=== PATIENT | female | born 1960 | race Caucasian/White ===

== ENCOUNTER → 2016-09-05 | Outpatient (CLI) | payer OTHER | LOC: GMAJ 20:07 | PROVIDERS: ATTEND Nurse Practitioner Family | DX: R30.0 Dysuria (principal) ==

== ENCOUNTER → 2017-01-04 | Outpatient (CLI) | payer OTHER | END | disposition home or self-care (01) | LOC: LAB.O 14:23 | DX: N39.0 Urinary tract infection, site not specified (principal) ==

== ENCOUNTER → 2017-01-15 | Outpatient (CLI) | payer OTHER | LOC: GMA 20:42 | PROVIDERS: ATTEND Nurse Practitioner Family | DX: N39.0 Urinary tract infection, site not specified (principal) ==

== ENCOUNTER → 2017-04-04 | Outpatient (CLI) | payer OTHER ==
--- NOTE | 2017-04-05 09:59 | CT ---
EXAM DESCRIPTION: Abdomen/Pelvis w/wo Contrast CLINICAL HISTORY: HX OF HEMATURIA COMPARISON: None. TECHNIQUE: Spiral-axial scans at 5.0 mm intervals through the abdomen and pelvis before and after standard dose nonionic IV contrast. 2 - minute delayed coronal and sagittal 2.0 mm reconstructions. Delayed 5 mm axial scans, liver through the pubic symphysis. No adverse reactions. Total Exam DLP 1313.21 mGy - cm. This exam was performed according to our departmental CT dose-optimization program which includes automated exposure control, adjustment of the mA and/or kV according to patient size and/or use of iterative reconstruction technique; to reduce radiation dose to as low as reasonably achievable (ALARA). FINDINGS: Kidneys and Ureters: No radiodense stones bilaterally in the kidneys or ureters. No hydronephrosis or hydroureter bilaterally. In the posterior medial left kidney posterior to the hilum, is a lobulated mass measuring 13.3 x 8.4 x 8.8 mm. Hounsfield density on immediate postcontrast images ranges from +24 - +49 HU, with the lower number seen on the coronal and sagittal images. On the axial delayed images, the mean HU is +61. No calcifications. The lesion appears to extend to the cortex on the sagittal images (series 601, images 132-136). No parenchymal lesions in the right kidney. Lung bases and pleura: Linear scar in the left lower lobe just above the diaphragm. No pleural effusion. Liver, Stomach, Spleen, Adrenal Glands: Unremarkable. Pancreas, Gallbladder, Ducts: Gallbladder is visualized. Pancreas and ducts are unremarkable. . Mesentery: No free air. No free fluid, mesenteric stranding, or fascial thickening. Aorta: Minimal calcification abutting the ostia of the SMA. The left renal vein bifurcates and courses anterior and posterior to the aorta to enter the IVC no filling defects in the renal vein branches.. Small Bowel: Contains fluid and minimal gas and normal caliber. Terminal Ileum/Cecum: Normal caliber. Normal caliber of the appendix. Normal density of the surrounding mesentery. Colon: Gas and fecal material with no distention. Moderate redundancy of the sigmoid colon. Pelvic Organs: Vaginal cuff is unremarkable. Minimal wall thickening. No radiodense stones in the urinary bladder. Fluid in the cul-de-sac. Spine and Bony Pelvis: Spondylosis L3-4 and L4-5 and mild levoscoliosis. No bone destruction. Abdominal Wall/Back Soft Tissues: Minimal diastases of the wall at the umbilicus but no hernia containing bowel. IMPRESSION: 1. 1.3 x 1.9 cm mass in the posterior medial left kidney posterior to the hilum which appears to contain fluid and solid components. No calcifications. Increasing enhancement over time. Extends to the cortex. Considerations include complicated cyst, partial infarction, and renal tumor. Consider urologic consult. No radiodense stones in the kidneys or ureters bilaterally. No radiodense stones in the urinary bladder. Minimal bladder wall thickening. Cannot exclude cystitis. 2. 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 CRITICAL COMMUNICATION: The critical value was discussed directly by phone with Dr. Haley's budget officer, Ms. Kate Edgar M.A., at approximately 905 hours, on April 05, 2017. Electronically signed by: Dell Jurado MD 04/05/2017 9:57 AM CDT
== END | disposition home or self-care (01) ==
LOC: CT 07:52
PROVIDERS: ATTEND Urology
DX: N28.89 Other specified disorders of kidney and ureter (principal)

== ENCOUNTER → 2017-05-09 | Outpatient (CLI) | payer OTHER ==
--- NOTE | 2017-05-10 08:38 | US ---
EXAM DESCRIPTION: Thyroid: Ultrasound. CLINICAL HISTORY: NODULE COMPARISON: None. TECHNIQUE: Transcutaneous scannin-dimensional and Doppler modes. FINDINGS: Right lobe dimensions 5.5 x 1.8 x 1.8 cm. Heterogeneous echoes. Complex nodule in the mid lobe measuring 1.3 cm transverse and 1.7 x 1.1 cm in the sagittal plane; peripheral vascular. Complex nodule in the upper lobe measuring 7 mm transverse and 7 x 7 mm in the sagittal plane. Minimally vascular periphery. Normal vascularity in the remainder of the lobe. No microcalcifications. Contour right lobe smooth. Juxta-thyroid masses/fluid: none. Left lobe dimensions 4.6 x 1.5 x 1.4 cm. Heterogeneous echoes. Complex nodule in the mid lobe measuring 1.5 cm transverse with central cystic region. 1.4 x 1.8 cm in the sagittal plane; increased peripheral vascularity. Second hypoechoic solid nodule measures 7.6 mm transverse and 10 x 4 mm in the sagittal plane no increased vascularity. Normal vascularity in the remainder of the lobe. No microcalcifications. Contour left lobe smooth. Juxta-thyroid masses/fluid: none. Isthmus thickness 2.2 mm. Heterogeneous echoes. Complex nodule on the right side of the isthmus measuring 12 x 7 x 5 mm with minimal vascularity. Normal vascularity in the remainder of the lobe. Contour : Capsule anterior displacement by nodule. IMPRESSION: 1. Multiple nodules in the isthmus and both lobes of the thyroid gland. Large complex nodule with increased peripheral vascularity in the mid left lobe meets the imaging criteria for fine needle aspiration sampling according to RP best practice guidelines, adopted from ACR white paper and Alexander 3-tiered guidelines on incidental thyroid nodules. Please see below.* 2. No discrete solid masses, cystic masses, or edema in the surrounding soft tissues. *Further evaluation by thyroid US recommended for: -Solitary incidental thyroid nodule (ITN) with high risk imaging features (locally invasive nodule or suspicious lymph nodes) -Solitary ITN of any size in pediatric patients <= 18 years of age -Solitary ITN >= 1 cm in axial plane in patients between 18 and 35 years of age -Solitary ITN >= 1.5 cm in axial plane in patients >= 35 years of age -Heterogeneous enlarged thyroid gland -ITN avid on FDG-PET or other nuclear medicine (MIBI and octreotide) scans. FNA biopsy is also recommended for PET avid nodules. 2.No f/u imaging is recommended for ITN's not meeting the above criteria. 3.For multiple thyroid nodules, the above recommendations for solitary ITN are to be applied to the largest nodule. 4.No US or f/u recommended for ITN's without high risk features in patients with limited life expectancy or significant co-morbidities, unless clinically warranted. 5.These recommendations do not apply to patients w/ increased risk for thyroid cancer or patients with symptomatic thyroid disease. Recommendations for f/u of Incidental Thyroid Nodules (ITN) found on CT, MR, NM and Extrathyroidal US are based upon the ACR white paper and Alexander 3-tiered system for managing ITN's: [facility] 2015 Aug;12(2): 143-50 Electronically signed by: Dell Jurado MD 05/10/2017 8:37 AM CDT
== END | disposition home or self-care (01) ==
LOC: US 09:32
PROVIDERS: ATTEND Family Medicine
DX: Z12.31 Encounter for screening mammogram for malignant neoplasm of breast (principal); E04.2 Nontoxic multinodular goiter
CPT/HCPCS: 76536; G0202

== ENCOUNTER → 2017-06-18 | Outpatient (CLI) | payer OTHER ==
--- NOTE | 2017-06-19 10:47 | MAM ---
EXAM DESCRIPTION: Diagnostic Mammo,Bilateral CLINICAL HISTORY: 56 yearsFemaleABNORMAL MAMMO COMPARISON: 2-D digital screening bilateral study 05/09/2017. TECHNIQUE: Bilateral 2-D digital full field LM projections. Bilateral 2-D digital CC magnification projections and bilateral digital LM magnifications anterior middle third of the breasts. CAD was utilized. FINDINGS: The breast parenchymal density pattern is: Heterogeneously dense breast tissue, which may obscure small masses. Diffuse microcalcifications in the anterior middle third of both breasts associated with the denser fibroglandular tissues. Several groups are noted bilaterally predominantly on the left in the retroareolar breast and in the middle third upper outer quadrant at approximately 200 clock position. These calcifications are predominantly rounded with varying sizes. In the right breast, the microcalcifications are predominantly laterally at the 832 900 clock position in the anterior and middle thirds extremity with the denser fibroglandular tissues. Multiple skin moles are noted bilaterally. IMPRESSION: BI-RADS CATEGORY: 3 - PROBABLY BENIGN. Management: Short interval (6-month) follow-up continued surveillance digital mammography, bilateral breasts. The FINDINGS and follow-up were discussed in person with the patient. Written communication explaining the IMPRESSION and followup will be mailed to the patient and referring care provider. Electronically signed by: Dell Jurado MD 06/19/2017 10:46 AM [facility]
== END | disposition home or self-care (01) ==
LOC: MAMMO 09:06
PROVIDERS: ATTEND Nurse Practitioner Family
DX: R92.8 Other abnormal and inconclusive findings on diagnostic imaging of breast (principal)

== ENCOUNTER → 2017-08-12 | Outpatient (CLI) | payer OTHER ==
--- NOTE | 2017-08-12 10:41 | MRI ---
EXAM DESCRIPTION: Brain w/wo Contrast: Magnetic Resonance Imaging. CLINICAL HISTORY: NEUROFIBROMATOSIS COMPARISON: None. TECHNIQUE: Multiplanar, high-field MRI, multiple conventional sequences, without and with gadolinium IV contrast. No adverse reactions. Multiple axial diffusion sequences. FINDINGS: Extra-axial mass dark on T2-weighted and T1-weighted images, with focal mass effect on the cortical loredo matter of the left frontal lobe just above the level of the ventricular bodies. Moderate enhancement of the mass and the tissue circumferential to the mass. Minimal central loss of FLAIR signal in the mass. Dimensions are 3.5 cm AP and 1.3 cm transverse, with 2.5 cm cranial caudal length. No diffusion restriction. At approximately the same transverse level, there is a small focal lesion of bright FLAIR and T2 signal abutting the upper anterior body of the left ventricle and the periventricular white matter. No diffusion restriction, no enhancement. No other abnormal signal in the periventricular white matter and loredo-white matter junctions of the cerebral hemispheres, and no abnormal enhancement. Normal signal in the bilateral basal ganglia. No hemorrhage, no cerebral edema, no mass-effect. Normal contrast enhancement. Normal signal in the brainstem and cerebellar hemispheres. No hemorrhage, no cerebral edema, no mass-effect. Normal contrast enhancement. Concordance of the diffusion and non-diffusion sequences with no evidence of acute or subacute infarction. Cortical sulci, ventricles, and other CSF spaces, and the subdural spaces are normally configured. No effacement or displacement. No midline shift. No extra-axial hemorrhage. Normal contrast enhancement. Normal flow flow signal void in the major vessels of the [place], and the venous sinuses. IACs are symmetric bilaterally. Minimal fluid signal in the inferior left mastoid air cells. Trace amount of contrast enhancement. No mass effect in the Cerebellopontine angles. Normal contrast enhancement. Pituitary gland occupies less than half of the sella. Normal contrast enhancement. Base of the cerebellar tonsils is at the level of the foramen magnum. Minimal mucosal thickening in the paranasal sinuses. The bony calvarium is intact. IMPRESSION: 1. 3.5 x 2.5 cm extra-axial mass with moderate enhancement at the level the lateral ventricular bodies with focal mass effect on the adjacent cortical loredo matter of the left frontal lobe. This would be an atypical location and appearance of a neurofibroma, but would be more consistent with a meningioma. Focal mass effect with no hemorrhage. 2. Small focal white matter lesion abutting the anterior frontal left lateral ventricle could represent a persistent neurofibroma or focal demyelination or focal sequela of migraine, vasculitis, inflammatory lesion, or cerebral microvascular disease and no real mass effect, no hemorrhage, no contrast enhancement. 3. No other intra-axial or extra-axial lesions. No lesions showing diffusion restriction which could indicate significant ischemia or infarction. 4. Mild chronic paranasal sinusitis. Probable sinusitis inferior left mastoid air cells. Electronically signed by: Dell Jurado MD 08/12/2017 10:40 AM [facility]
== END | disposition home or self-care (01) ==
LOC: MRI 07:07
PROVIDERS: ATTEND Nurse Practitioner Family
DX: Q85.00 Neurofibromatosis, unspecified (principal)

== ENCOUNTER → 2017-12-24 | Outpatient (CLI) | payer OTHER ==
--- NOTE | 2018-01-06 15:07 | MAM ---
EXAM DESCRIPTION: 3D Diagnostic, Bilateral: Digital Mammography CLINICAL HISTORY: 57 yearsFemale6 MONTH FOLLOW UP multiple bilateral microcalcifications.. COMPARISON: prior. No prior reports available. Reports from prior examinations also reviewed. Report from prior examination also reviewed. TECHNIQUE: Bilateral CC LM MLO projection full-field images, 3-D tomosynthesis digital mammographic technique. 2-D magnification mid and anterior breast bilaterally, CC and MLO, and LM projections. CAD utilized for 2-D images. FINDINGS: The breast parenchymal density pattern is: Heterogeneously dense breast tissue, which may obscure small masses. No skin thickening or nipple retraction multiple bilateral skin moles seen on the breast and adjacent skin surfaces. Bilateral multiple solitary microcalcifications with several groups bilaterally. The groups are in the 830 - 900 clock position in the anterior middle third of the right breast. Also the 200 clock position anterior middle third upper outer quadrant left breast appear stable since the prior study. No focal, stellate mass or density, focal asymmetry , and no suspicious microcalcifications bilaterally. IMPRESSION: BI-RADS CATEGORY: 3 - PROBABLY BENIGN. Management: Short interval (6-month) follow-up digital diagnostic mammography, or follow-up May 2018.. The FINDINGS and the FOLLOW-UP plan were reviewed in person with the patient after the examination. Written communication explaining the IMPRESSION and FOLLOW-UP will be mailed to the patient and referring care provider. Electronically signed by: Dell Jurado MD 01/06/2018 3:06 PM CDT
== END ==
LOC: MAMMO 09:00
PROVIDERS: ATTEND Nurse Practitioner Family
DX: R92.8 Other abnormal and inconclusive findings on diagnostic imaging of breast (principal)
CPT/HCPCS: 77066; G0279

== ENCOUNTER → 2018-04-04 | Outpatient (CLI) | payer BC | LOC: GMATM 20:26 | PROVIDERS: ATTEND Nurse Practitioner Family | DX: N39.0 Urinary tract infection, site not specified (principal) ==

== ENCOUNTER → 2018-04-28 | Outpatient (CLI) | payer BC | LOC: GMAJ 14:42 | PROVIDERS: ATTEND Family Medicine | DX: N39.0 Urinary tract infection, site not specified (principal) ==

== ENCOUNTER → 2018-09-16 | Outpatient (CLI) | payer BC ==
--- NOTE | 2018-09-17 12:49 | MAM ---
EXAM DESCRIPTION: 3D Diagnostic, Bilateral: Digital Mammography CLINICAL HISTORY: 57 yearsFemale6 MONTH FOLLOW UP bilateral breast calcifications for continued six-month follow-up. No personal or family history of breast cancer. Patient has neurofibromatosis. Late childbirth. Hysterectomy 9 years ago. No HRT.. Lifetime risk of developing breast cancer (Tyrer-Cuzick model) percentage is 10.0. COMPARISON: Diagnostic bilateral digital breast tomosynthesis 12/24/2017, 2-D diagnostic bilateral mammography 06/18/2017, and bilateral digital 2-D screening mammography 05/09/2017.. TECHNIQUE: Bilateral LM, CC, and MLO projection full-field images, digital mammographic tomosynthesis technique. Bilateral 2-D digital full-field MLO images. Bilateral spot digital magnification of the regions of interest in the breast CC and LM projections. CAD not available. FINDINGS: The breast parenchymal density pattern is: Heterogeneously dense breast tissue, which may obscure small masses. No skin thickening or nipple retraction again noted on bilateral breasts are multiple skin moles consistent with clinical history. Bilateral multiple microcalcifications and some in groups with heterogeneous size associated with the denser fibroglandular tissues bilaterally upper breasts more than lower, and lateral breast more than medial. Stable since the prior study. Some of the skin moles are calcified. No new focal, stellate mass or density, focal asymmetry , and no suspicious microcalcifications bilaterally. IMPRESSION: BI-RADS CATEGORY: 3 - PROBABLY BENIGN. Management: Short interval (6-month) follow-up bilateral diagnostic mammography in approximately April 2019. The FINDINGS and the FOLLOW-UP plan were reviewed in person with the patient after the examination. Written communication explaining the IMPRESSION and FOLLOW-UP will be mailed to the patient and referring care provider. Electronically signed by: Dell Jurado MD 09/17/2018 12:45 PM [employer]
== END ==
LOC: MAMMO 08:00
PROVIDERS: ATTEND Family Medicine
DX: R92.8 Other abnormal and inconclusive findings on diagnostic imaging of breast (principal)
CPT/HCPCS: 77066; G0279

== ENCOUNTER 2018-10-29 05:23 | Day surgery (SDC) | payer BC ==
[2018-10-29] MEDS ORDERED: PROPOFOL 200 MG/20 ML VIAL IV ONE (07:00)
[2018-10-29] MEDS ORDERED: LACTATED RINGERS 1,000 ML ONE (08:02)
--- NOTE | 2018-10-29 14:11 | OP ---
DATE OF PROCEDURE: 10/29/18 PREPROCEDURE DIAGNOSIS: 1. Colorectal cancer screening. POSTPROCEDURE DIAGNOSIS: 1. Basurto diverticulosis. 2. Internal hemorrhoids. PROCEDURE: 1. Colonoscopy. SURGEON: Sage Ruiz MD COMPLICATIONS: No immediate complications. SEDATION: The patient was sedated via IV propofol by the Anesthesia Department. CONSENT: Prior to the procedure, risks, benefits and alternatives to the therapy were discussed with the patient. The risks included bleeding, infection, perforation and . The patient agreed to the procedure and signed a consent. PREPROCEDURE ANESTHESIA ASSESSMENT: An examination revealed no contraindication to sedation. Airway examination demonstrated a Mallampati class type 2, ASA grade assessment type 2. Throughout the procedure, the patient's vital signs were closely monitored. PROCEDURE: The patient was placed in the left lateral decubitus position and a rectal examination was performed. The rectal examination was within normal limits. The Olympus colonoscope was passed in the anus all the way into the cecum as identified by the ileocecal valve and appendiceal orifice. The scope was retracted and the mucosa was visualized. The entirety of the exam was performed under direct visualization. Retroflexion was performed in the rectum. Preparation quality was excellent. The withdrawal time was greater than 6 minutes. The patient tolerated the procedure well. FINDINGS: 1. Extensive amount of diverticulosis was found throughout the colon. 2. Non-bleeding medium sized internal hemorrhoids were found in retroflexion. 3. The remainder of the examination was entirely normal. RECOMMENDATION: 1. Return the patient home. 2. Resume previous diet favoring high-fiber foods. 3. Repeat colonoscopy in the next 5 to 10 years considering the patient's family history of colon cancer. However, this was not a first degree family member as it was her grandfather. 4. Primary care physician may check FIT/Cologuard in the next 3 to 5 years. 5. Return to referring physicians office as previously scheduled. 6. Findings were discussed with the patient and family members. #[id number] MPAR
[2018-10-29 14:13] VITALS: O2SAT 97
[2018-10-29 14:48] VITALS: BP 120/61; TEMP 97.2
== END 2018-10-29 14:35 | disposition home or self-care (01) ==
LOC: AMB 05:23
PROVIDERS: ATTEND Internal Medicine Gastroenterology
DX: Z12.11 Encounter for screening for malignant neoplasm of colon (principal); K57.30 Diverticulosis of large intestine without perforation or abscess without bleeding; K64.8 Other hemorrhoids; E89.0 Postprocedural hypothyroidism; Z88.2 Allergy status to sulfonamides; Z79.899 Other long term (current) drug therapy
CPT/HCPCS: 00812; 45378; J3490; J7120

== ENCOUNTER → 2018-11-03 | Outpatient (CLI) | payer OTHER | LOC: LAB.O 13:23 | PROVIDERS: ATTEND Surgery | DX: E03.9 Hypothyroidism, unspecified (principal) ==

== ENCOUNTER → 2019-03-09 | Outpatient (CLI) | payer BC, OTHER | LOC: GMATM 20:34 | PROVIDERS: ATTEND Nurse Practitioner Family | DX: R30.0 Dysuria (principal) ==

== ENCOUNTER → 2020-01-07 | Outpatient (CLI) | payer OTHER, BC | LOC: GMAM 10:57 | PROVIDERS: ATTEND Family Medicine | DX: E03.9 Hypothyroidism, unspecified (principal) ==

== ENCOUNTER → 2020-03-04 | Outpatient (CLI) | payer OTHER, BC | LOC: GMAM 10:37 | PROVIDERS: ATTEND Family Medicine | DX: R30.0 Dysuria (principal) ==

== ENCOUNTER → 2020-03-24 | Outpatient (CLI) | payer OTHER, BC | LOC: GMAM 16:30 | PROVIDERS: ATTEND Family Medicine | DX: R30.0 Dysuria (principal) ==

== ENCOUNTER → 2020-06-10 | Outpatient (CLI) | payer BC | LOC: GMAM 10:44 | PROVIDERS: ATTEND Family Medicine | DX: E03.9 Hypothyroidism, unspecified (principal); Z79.899 Other long term (current) drug therapy ==

== ENCOUNTER → 2020-08-12 | Outpatient (CLI) | payer BC | LOC: GMAM 10:45 | PROVIDERS: ATTEND Family Medicine | DX: N39.0 Urinary tract infection, site not specified (principal) ==